=== PATIENT | female | born 1940 | race Caucasian/White ===

== ENCOUNTER 2018-01-27 08:00 | Inpatient (IN) | payer MEDICARE ==
[2018-01-27] MEDS ORDERED: ONDANSETRON HCL INJ/PF 4 MG/2 ML SDV IV ONE ×2 (08:35→12:45)
[2018-01-27] MEDS ORDERED: NORMAL SALINE 1000 ML 1,000 ML IV ONE (08:35)
--- NOTE | 2018-01-27 08:35 | ER Document Report ---
ED General - General Mode of Arrival: Ambulatory Information source: Patient TRAVEL OUTSIDE OF THE [place] IN LAST 30 DAYS: No <ROSEMARIE BENNETT - Last Filed: 01/27/18 09:00> <NAVYA GIRON - Last Filed: 01/27/18 16:42> - General Chief Complaint: Fever Stated Complaint: FEVER Time Seen by Provider: 01/27/18 08:26 Notes: Patient is a 77 year old female with CAD (2 stents), type 2 diabetes, hypertension, hyperlipidemia presents to the emergency department complaining of multiple symptoms including fever, nausea, abdominal pain, vomiting and a frontal headache onset 2 days ago. Patients states she has been feeling unwell for the last 2 days stating she initially thought she had a flare of her arthritis due to having some joint pain but that has since resolved and she has been nauseous and having episodes of diarrhea. She states she has only been dry heaving and further states her episodes of diarrhea have been in small amounts further describing it as "mucousy". She also reports decreased urine output the last 2 days. She denies any coughs. Patient states she recently moved here from [place] to live with her daughter. Patient's PCP is Dr. Rangel. (ROSEMARIE BENNETT) - Related Data Allergies/Adverse Reactions: ciprofloxacin [From Cipro] Adverse Reaction (Verified 01/27/18 08:01) Past Medical History - General Information source: Patient - Social History Smoking Status: Never Smoker Cigarette use (# per day): No Chew tobacco use (# tins/day): No Smoking Education Provided: No Drug Abuse: None Family History: Reviewed & Not Pertinent - Past Medical History Cardiac Medical History: Reports: Hx Coronary Artery Disease - 2 stents, Hx Hypercholesterolemia, Hx Hypertension Endocrine Medical History: Reports: Hx Diabetes Mellitus Type 2 Musculoskeletal Medical History: Reports Hx Arthritis Past Surgical History: Reports: Hx Appendectomy, Hx Hysterectomy, Hx Tubal Ligation <ROSEMARIE BENNETT - Last Filed: 01/27/18 09:00> Review of Systems - Review of Systems Constitutional: See HPI, Fever, Malaise EENT: No symptoms reported Cardiovascular: No symptoms reported Respiratory: No symptoms reported Gastrointestinal: See HPI, Abdominal pain, Diarrhea, Nausea Genitourinary: See HPI Female Genitourinary: No symptoms reported Musculoskeletal: No symptoms reported Skin: No symptoms reported Hematologic/Lymphatic: No symptoms reported Neurological/Psychological: No symptoms reported -: Yes All other systems reviewed and negative <ROSEMARIE BENNETT - Last Filed: 01/27/18 09:00> Physical Exam - General General appearance: Appears well, Alert In distress: None - HEENT Head: Normocephalic, Atraumatic Eyes: Normal Conjunctiva: Normal Extraocular movements intact: Yes Pupils: PERRL Neck: Normal, Other - No rigidity. - Respiratory Respiratory status: No respiratory distress, Other - Cough exacerbated frontal headache. Chest status: Nontender Breath sounds: Normal Chest palpation: Normal - Cardiovascular Rhythm: Regular Heart sounds: Normal auscultation Friction rub: No Gallop: None auscultated - Abdominal Inspection: Normal Distension: No distension Bowel sounds: Normal Tenderness: Tender - Minimally tender to the RLQ. - Back Back: Normal - Extremities General upper extremity: Normal ROM General lower extremity: Normal ROM - Neurological Neuro grossly intact: Yes Cognition: Normal Orientation: AAOx4 [place] Coma Scale Eye Opening: Spontaneous Kyle Coma Scale Verbal: Oriented [place] Coma Scale Motor: Obeys Commands Kyle Coma Scale Total: 15 Speech: Normal - Psychological Associated symptoms: Normal affect, Normal mood - Skin Skin Temperature: Warm Skin Moisture: Dry Skin Color: Normal <ROSEMARIE BENNETT - Last Filed: 01/27/18 09:00> - Vital signs Vitals: Temp Pulse Resp BP Pulse Ox 99.5 F 100 20 130/50 H 99 01/27/18 08:05 01/27/18 08:05 01/27/18 08:05 01/27/18 08:05 01/27/18 08:05 Course <ROSEMARIE BENNETT - Last Filed: 01/27/18 09:00> - Laboratory Result Diagrams: 01/27/18 09:08 01/27/18 09:08 - EKG Interpretation by Ct EKG shows normal: Sinus rhythm, [place], Intervals, QRS Complexes, ST-T Waves Rate: Normal - 99 Rhythm: NSR P Waves: LAE When compared to previous EKG there are: Previous EKG unavailable - Consults Dr. Zepeda Time consulted: 16:40 Consulted provider: will come to ER <NAVYA GIRON - Last Filed: 01/27/18 16:42> - Re-evaluation Re-evalutation: 01/27/18 14:40 The patient was reevaluated about 12:35, she had only urinated a small amount for the urinalysis after the first 2 L of IV fluids. She was beginning to feel quite warm to touch. She stated she was just aching generally all over her body. She had some limitation in attempt to place her chin on her chest due to her arthritis, but flexing her neck did not cause any increase in her headache, and she was able to extend her neck and then flex back almost fully without any real discomfort. I gave her 975 mg Tylenol, 1/2 mg of Dilaudid, and another liter of LR. 01/27/18 16:35 Patient has had at least 2 episodes of diarrhea since the last note above. She states she does feel much better all over since receiving the Tylenol and the small dose of Dilaudid. (NAVYA GIRON) - Vital Signs Vital signs: Temp Pulse Resp BP Pulse Ox 99.5 F 100 20 135/58 H 94 01/27/18 08:05 01/27/18 12:00 01/27/18 12:00 01/27/18 12:00 01/27/18 12:00 - Laboratory Laboratory results interpreted by me: 01/27/18 01/27/18 01/27/18 09:08 09:08 10:05 WBC 20.0 H MCV 79 L MCH 26.4 L RDW 14.7 H Seg Neuts % (Manual) 95 H Lymphocytes % (Manual) 1 L Abs Neuts (Manual) 19.0 H Abs Lymphs (Manual) 0.4 L Sodium 131.2 L Chloride 93 L Carbon Dioxide 21 L Glucose 207 H Urine Protein 100 H Urine Glucose (UA) 50 H Urine Ketones 20 H Ur Leukocyte Esterase MODERATE H Discharge <ROSEMARIE BENNETT - Last Filed: 01/27/18 09:00> - Discharge Admitting Provider: Hospitalist Unit Admitted: Telemetry <NAVYA GIRON - Last Filed: 01/27/18 16:42> - Discharge Clinical Impression: Nausea, vomiting and diarrhea, Generalized pain Leukocytosis Qualifiers: Leukocytosis type: unspecified Qualified Code(s): D72.829 - Elevated white blood cell count, unspecified Fever Qualifiers: Fever type: unspecified Qualified Code(s): R50.9 - Fever, unspecified Condition: Stable Disposition: ADMITTED INPATIENT Referrals: COREY RANGEL MD [Primary Care Provider] - Follow up as needed Scribe Attestation: 01/27/18 09:09 I personally performed the services described in the documentation, reviewed and edited the documentation which was dictated to the scribe in my presence, and it accurately records my words and actions. (NAVYA GIRON) Scribe Documentation - Scribe Written by Willy:: Willy Maradiaga, 01/27/2018 08:45 acting as scribe for :: Phil <ROSEMARIE BENNETT - Last Filed: 01/27/18 09:00>
[2018-01-27] MEDS ORDERED: ONDANSETRON HCL INJ/PF 4 MG/2 ML SDV ONE ×2 (08:47→12:51)
--- NOTE | 2018-01-27 09:31 | RADIOLOGY REPORT (SQ) ---
EXAM DESCRIPTION: CHEST SINGLE VIEW COMPLETED DATE/TIME: 01/27/2018 9:20 am REASON FOR STUDY: Nausea, vomiting, fever, headache COMPARISON: None. EXAM PARAMETERS: NUMBER OF VIEWS: One view. TECHNIQUE: Single frontal radiographic view of the chest acquired. RADIATION DOSE: NA LIMITATIONS: None. FINDINGS: LUNGS AND PLEURA: No opacities, masses or pneumothorax. No pleural effusion. MEDIASTINUM AND HILAR STRUCTURES: No masses. Contour normal. HEART AND VASCULAR STRUCTURES: Heart normal in size. Normal vasculature. BONES: No acute findings. HARDWARE: None in the chest. OTHER: No other significant finding. IMPRESSION: NO ACUTE RADIOGRAPHIC FINDING IN THE CHEST. TECHNICAL DOCUMENTATION: JOB ID: [id number] [employer]- All Rights Reserved Reading location - IP/workstation name: [email or web address]
[2018-01-27 09:35] LABS: HEMATOCRIT 36.2 % (36.0-47.0); HEMOGLOBIN 12.2 g/dL (12.0-15.5); MEAN CORPUSCULAR HEMOGLOBIN 26.4 pg (27.0-33.4); MEAN CORPUSCULAR HGB CONC 33.6 g/dL (32.0-36.0); MEAN CORPUSCULAR VOLUME 79 fl (80-97); PLATELET COUNT 248 10^3/uL (150-450); RED BLOOD COUNT 4.61 10^6/uL (3.72-5.28); RED CELL DISTRIBUTION WIDTH 14.7 % (11.5-14.0)
[2018-01-27 09:49] LABS: ALANINE AMINOTRANSFERASE 32 U/L (9-52); ALBUMIN 3.9 g/dL (3.5-5.0); ALKALINE PHOSPHATASE 113 U/L (38-126); ANION GAP 17 (5-19); ASPARTATE AMINO TRANSFERASE 19 U/L (14-36); BILIRUBIN,DIRECT 0.3 mg/dL (0.0-0.4); BILIRUBIN,TOTAL 0.8 mg/dL (0.2-1.3); BLOOD UREA NITROGEN 12 mg/dL (7-20); CALCIUM 9.1 mg/dL (8.4-10.2); CARBON DIOXIDE 21 mmol/L (22-30); CHLORIDE 93 mmol/L (98-107); CREATINE KINASE 52 U/L (30-135); GLUCOSE 207 mg/dL (75-110); POTASSIUM 4.1 mmol/L (3.6-5.0); SODIUM 131.2 mmol/L (137-145); TOTAL PROTEIN 6.9 g/dL (6.3-8.2)
[2018-01-27 10:01] LABS: CREATINE KINASE MB 1.03 ng/mL (<4.55)
[2018-01-27 10:03] LABS: TROPONIN I < 0.012 ng/mL
[2018-01-27] MEDS ORDERED: RINGERS SOLUTION,LACTATED 1,000 ML IV ONE ×3 (10:19→16:37)
[2018-01-27 10:22] LABS: ABSOLUTE LYMPHOCYTES# (MANUAL) 0.4 10^3/uL (0.5-4.7); ABSOLUTE MONOCYTES # (MANUAL) 0.6 10^3/uL (0.1-1.4); BASOPHILS % (MANUAL) 0 % (0-2); EOSINOPHILS % (MANUAL) 0 % (0-6); LYMPHOCYTES % (MANUAL) 1 % (13-45); MONOCYTES % (MANUAL) 3 % (3-13); SEGMENTED NEUTROPHILS % (MAN) 95 % (42-78); TOTAL CELLS COUNTED 100
[2018-01-27 10:23] LABS: ANISOCYTOSIS SLIGHT; HYPOCHROMASIA SLIGHT; PLATELET COMMENT ADEQUATE; POIKILOCYTOSIS SLIGHT; TEAR DROP CELLS SLIGHT
[2018-01-27 10:40] LABS: AMORPHOUS SEDIMENT,URINE TRACE /HPF; APPEARANCE,URINE SLIGHTLY-CLOUDY; BILIRUBIN,URINE NEGATIVE (NEGATIVE); GLUCOSE, URINE 50 mg/dL (NEGATIVE); KETONES,URINE 20 mg/dL (NEGATIVE); LEUKOCYTE ESTERASE,URINE MODERATE (NEGATIVE); NITRITE,URINE NEGATIVE (NEGATIVE); PROTEIN,URINE 100 mg/dL (NEGATIVE); URINE SPECIFIC GRAVITY 1.024; UROBILINOGEN,URINE NEGATIVE mg/dL (<2.0)
[2018-01-27 10:42] LABS: COLOR,URINE YELLOW
[2018-01-27] MEDS ORDERED: HYDROMORPHONE HCL INJ/PF 2 MG/ML AMPULE IV ONE (12:45)
[2018-01-27] MEDS ORDERED: ACETAMINOPHEN 325 MG TABLET PO ONE (12:46)
[2018-01-27] MEDS ORDERED: HYDROMORPHONE HCL INJ/PF 2 MG/ML AMPULE ONE (12:50)
[2018-01-27] MEDS ORDERED: ACETAMINOPHEN 325 MG TABLET ONE (12:50)
[2018-01-27] MEDS ORDERED: PROMETHAZINE HCL INJ 25 MG/1 ML VIAL IV PRN (18:18)
[2018-01-27] MEDS ORDERED: IPRATROPIUM/ALBUTEROL 0.5-2.5 MG/3 ML AMPUL NEB PRN (18:18)
[2018-01-27] MEDS ORDERED: OXYCODONE-ACETAMINOPHEN 5-325 MG TABLET PO PRN (18:18)
[2018-01-27] MEDS ORDERED: DICYCLOMINE HCL 20 MG TABLET PO PRN (18:24)
--- NOTE | 2018-01-27 18:41 | PDOC H&P ---
History of Present Illness Admission Date/PCP: 01/27/18 17:41 COREY ALVAREZ MD Patient complains of: Abdominal pain, cramping, nausea and vomiting for about 2 days History of Present Illness: ADRIAN KARIMI is a 77 year old female Presents to the emergency room with the above complaints. She is not sure if she really ate anything to make her sick but states that the symptoms started Wednesday night after she ate some sandwich. She has been having loose stools as well as abdominal cramping and nausea and vomiting. She is also had a poor appetite as well as fever. There is no chest pain diaphoresis. She decided to come to the emergency room today for further evaluation due to the persistent symptoms. She was found to be septic with a white count of 20,000 as well as with the possible UTI in addition to the diarrhea and cramping. Patient states she had a somewhat similar episode back in October and she was told she had a colitis. She is actually scheduled for a colonoscopy in February 03. Past Medical History Cardiac Medical History: Reports: Coronary Artery Disease - 2 stents, Hyperlipidema, Hypertension Endocrine Medical History: Reports: Diabetes Mellitus Type 2 Musculoskeltal Medical History: Reports: Arthritis Past Surgical History Past Surgical History: Reports: Appendectomy, Hysterectomy, Tubal Ligation Social History Information Source: Patient Smoking Status: Never Smoker - Advance Directive Resuscitation Status: Full Code Family History Family History: Reviewed & Not Pertinent Parental Family History Reviewed: No Children Family History Reviewed: Yes Sibling(s) Family History Reviewed.: Yes Medication/Allergy Home Medications: Amlodipine Besylate [Norvasc 10 mg Tablet] 10 mg PO DAILY 01/27/18 Aspirin [Aspirin EC] 81 mg PO DAILY 01/27/18 Carvedilol [Coreg 6.25 mg Tablet] 6.25 mg PO Q12 01/27/18 Glipizide [Glipizide Xl] 10 mg PO Q12 01/27/18 Insulin Degludec [Tresiba Flextouch U-200] 16 - 20 unit SQ HSP PRN 01/27/18 Lisinopril [Zestril] 30 mg PO QHS 01/27/18 Metformin HCl [Metformin HCl ER] 500 mg PO Q12 01/27/18 Simvastatin [Zocor 10 mg Tablet] 10 mg PO QHS 01/27/18 Allergies/Adverse Reactions: ciprofloxacin [From Cipro] Adverse Reaction (Verified 01/27/18 08:01) Review of Systems All systems: reviewed and no additional remarkable complaints except as stated Physical Exam Vital Signs: Temp Pulse Resp BP Pulse Ox 99.5 F 100 20 135/58 H 94 01/27/18 08:05 01/27/18 12:00 01/27/18 12:00 01/27/18 12:00 01/27/18 12:00 General appearance: PRESENT: no acute distress, well-developed, well-nourished Head exam: PRESENT: atraumatic, normocephalic Eye exam: PRESENT: conjunctiva pink, EOMI, PERRLA. ABSENT: scleral icterus Ear exam: PRESENT: normal external ear exam Mouth exam: PRESENT: moist, tongue midline Neck exam: ABSENT: carotid bruit, JVD, lymphadenopathy, thyromegaly Respiratory exam: PRESENT: clear to auscultation varun. ABSENT: rales, rhonchi, wheezes Cardiovascular exam: PRESENT: RRR. ABSENT: diastolic murmur, rubs, systolic murmur Pulses: PRESENT: normal dorsalis pedis pul Vascular exam: PRESENT: normal capillary refill GI/Abdominal exam: PRESENT: distended, hyperactive bowel sounds, normal bowel sounds, soft. ABSENT: guarding, mass, organolmegaly, rebound, tenderness Rectal exam: PRESENT: deferred Extremities exam: PRESENT: full ROM. ABSENT: calf tenderness, clubbing, pedal edema Neurological exam: PRESENT: alert, awake, oriented to person, oriented to place , oriented to time, oriented to situation, CN II-XII grossly intact. ABSENT: motor sensory deficit Psychiatric exam: PRESENT: appropriate affect, normal mood. ABSENT: homicidal ideation, suicidal ideation Skin exam: PRESENT: dry, intact, warm. ABSENT: cyanosis, rash Results Laboratory Results: 01/27/18 09:08 01/27/18 09:08 MCV 79 fl (80-97) L 01/27/18 09:08 MCH 26.4 pg (27.0-33.4) L 01/27/18 09:08 MCHC 33.6 g/dL (32.0-36.0) 01/27/18 09:08 RDW 14.7 % (11.5-14.0) H 01/27/18 09:08 Seg Neutrophils % Not Reportable 01/27/18 09:08 Lymphocytes % Not Reportable 01/27/18 09:08 Monocytes % Not Reportable 01/27/18 09:08 Eosinophils % Not Reportable 01/27/18 09:08 Basophils % Not Reportable 01/27/18 09:08 Absolute Neutrophils Not Reportable 01/27/18 09:08 Absolute Lymphocytes Not Reportable 01/27/18 09:08 Absolute Monocytes Not Reportable 01/27/18 09:08 Absolute Eosinophils Not Reportable 01/27/18 09:08 Absolute Basophils Not Reportable 01/27/18 09:08 Chloride 93 mmol/L (98-107) L 01/27/18 09:08 Carbon Dioxide 21 mmol/L (22-30) L 01/27/18 09:08 Anion Gap 17 (5-19) 01/27/18 09:08 Est GFR ( Amer) > 60 (>60) 01/27/18 09:08 Est GFR (Non-Af Amer) > 60 (>60) 01/27/18 09:08 Glucose 207 mg/dL (75-110) H 01/27/18 09:08 Lactic Acid 1.2 mmol/L (0.7-2.1) 01/27/18 09:08 Calcium 9.1 mg/dL (8.4-10.2) 01/27/18 09:08 Total Bilirubin 0.8 mg/dL (0.2-1.3) 01/27/18 09:08 AST 19 U/L (14-36) 01/27/18 09:08 ALT 32 U/L (9-52) 01/27/18 09:08 Alkaline Phosphatase 113 U/L (38-126) 01/27/18 09:08 Total Protein 6.9 g/dL (6.3-8.2) 01/27/18 09:08 Albumin 3.9 g/dL (3.5-5.0) 01/27/18 09:08 Urine Color YELLOW 01/27/18 10:05 Urine Appearance SLIGHTLY-CLOUDY 01/27/18 10:05 Urine pH 5.0 (5.0-9.0) 01/27/18 10:05 Ur Specific [place] 1.024 01/27/18 10:05 Urine Protein 100 mg/dL (NEGATIVE) H 01/27/18 10:05 Urine Glucose (UA) 50 mg/dL (NEGATIVE) H 01/27/18 10:05 Urine Ketones 20 mg/dL (NEGATIVE) H 01/27/18 10:05 Urine Blood NEGATIVE (NEGATIVE) 01/27/18 10:05 Urine Nitrite NEGATIVE (NEGATIVE) 01/27/18 10:05 Ur Leukocyte Esterase MODERATE (NEGATIVE) H 01/27/18 10:05 Urine WBC (Auto) 9 /HPF 01/27/18 10:05 Urine RBC (Auto) 5 /HPF 01/27/18 10:05 Stool for White Cells Cancelled 01/27/18 15:40 01/27/18 01/27/18 09:08 09:08 Creatine Kinase 52 CK-MB (CK-2) 1.03 Troponin I < 0.012 Impressions: Chest X-Ray 01/27/18 08:36 IMPRESSION: NO ACUTE RADIOGRAPHIC FINDING IN THE CHEST. Assessment & Plan - Diagnosis (1) UTI (urinary tract infection) Is this a current diagnosis for this admission?: Yes Plan: I feel this is likely secondary to the acute gastrointestinal illness that she has. Will obtain urine culture. She will be started on Invanz as she is allergic to ciprofloxacin as this will cover both GI organisms as well as genitourinary admissions. We will de-escalate as appropriate (2) Nausea, vomiting and diarrhea Is this a current diagnosis for this admission?: Yes Plan: #2 gastroenteritis (3) Acute gastroenteritis Is this a current diagnosis for this admission?: Yes Plan: We will treat symptomatically and also with empiric antibiotics. Will consider obtaining a CT scan depending on patient's hospital course. She definitely will need colonoscopy in the near future - Time Time Spent: 50 to 70 Minutes Medications reviewed and adjusted accordingly: Yes Anticipated discharge: Home Within: within 72 hours - Inpatient Certification Based on my medical assessment, after consideration of the patient's comorbidities, presenting symptoms, or acuity I expect that the services needed warrant INPATIENT care.: Yes Medical Necessity: Need For IV Fluids, Need for IV Antibiotics, Risk of Diagnosis Which Will Require Inpatient Eval/Care/Monitoring
[2018-01-27] MEDS ORDERED: ENOXAPARIN SODIUM INJ 40 MG/0.4 ML DISP.SYRIN SUBCUT ONE (19:00)
[2018-01-27] MEDS: RINGERS SOLUTION,LACTATED 1,000 ML IV PRN (19:20)
[2018-01-27] MEDS ORDERED: TEMAZEPAM 7.5 MG CAPSULE PO PRN (22:00)
[2018-01-28] MEDS: ERTAPENEM SODIUM 1 GM in NORMAL SALINE 50 ML IV SCH ×2 (00:50→21:17)
[2018-01-28] MEDS: FAMOTIDINE INJ/PF 20 MG/2 ML SDV IV SCH ×3 (00:51→21:18)
[2018-01-28 08:00] LABS: ANION GAP 11 (5-19); BLOOD UREA NITROGEN 6 mg/dL (7-20); CALCIUM 8.6 mg/dL (8.4-10.2); CARBON DIOXIDE 24 mmol/L (22-30); CHLORIDE 101 mmol/L (98-107); GLUCOSE 118 mg/dL (75-110); POTASSIUM 3.5 mmol/L (3.6-5.0); SODIUM 135.7 mmol/L (137-145)
[2018-01-28 08:08] LABS: ABSOLUTE LYMPHOCYTES (AUTO) 0.9 10^3/uL (0.5-4.7); ABSOLUTE MONOCYTES (AUTO) 0.6 10^3/uL (0.1-1.4); ABSOLUTE NEUT (AUTO) 7.9 10^3/uL (1.7-8.2); BASOPHILS % (AUTO) 0.1 % (0-2); EOSINOPHILS % (AUTO) 0.1 % (0-6); HEMATOCRIT 31.8 % (36.0-47.0); HEMOGLOBIN 11.1 g/dL (12.0-15.5); LYMPHOCYTES % (AUTO) 9.2 % (13-45); MEAN CORPUSCULAR HEMOGLOBIN 26.9 pg (27.0-33.4); MEAN CORPUSCULAR HGB CONC 34.7 g/dL (32.0-36.0); MEAN CORPUSCULAR VOLUME 78 fl (80-97); MONOCYTES % (AUTO) 6.2 % (3-13); PLATELET COUNT 211 10^3/uL (150-450); SEGMENTED NEUTROPHILS % (AUTO) 84.4 % (42-78); TOTAL CELLS COUNTED % (AUTO) 100 %; WHITE BLOOD COUNT 9.3 10^3/uL (4.0-10.5)
--- NOTE | 2018-01-28 09:08 | EKG REPORT ---
SEVERITY:- ABNORMAL ECG - SINUS RHYTHM PROBABLE LEFT ATRIAL ABNORMALITY CONSIDER ANTEROSEPTAL INFARCT : Confirmed by: Belia Castellon 28-Jan-2018 09:07:30
[2018-01-28] MEDS: ENOXAPARIN SODIUM INJ 40 MG/0.4 ML DISP.SYRIN SUBCUT SCH (11:10)
[2018-01-28] MEDS: RINGERS SOLUTION,LACTATED 1,000 ML IV PRN ×2 (11:11→21:26)
[2018-01-28] MEDS: ACETAMINOPHEN 325 MG TABLET PO PRN ×2 (11:17→22:47)
--- NOTE | 2018-01-28 17:51 | PDOC PROGRESS REPORT ---
Subjective Progress Note for:: 01/28/18 Subjective:: Patient admitted with abdominal pain nausea and vomiting and presumed to have a possible infectious gastroenteritis or colitis. Patient appears to be doing better today however she still pretty tender in the lower quadrant. Her white count has come down from 20,000-8000. Diarrhea has more or less resolved. Stool WBC is positive Although culture is still pending C. difficile is also negative. Patient remains on a liquid diet due to abdominal pain Reason For Visit: ACUTE GASTROENTERITIS, SEPSIS, UTI Physical Exam Vital Signs: Temp Pulse Resp BP Pulse Ox 98.7 F 75 17 141/54 H 98 01/28/18 16:00 01/28/18 16:00 01/28/18 16:00 01/28/18 16:00 01/28/18 16:00 Intake & Output 01/27/18 01/28/18 01/29/18 06:59 06:59 06:59 Intake Total 2250 Output Total 680 Balance 1570 Weight 72.9 kg General appearance: PRESENT: no acute distress, well-developed, well-nourished Head exam: PRESENT: atraumatic, normocephalic Eye exam: PRESENT: conjunctiva pink, EOMI, PERRLA. ABSENT: scleral icterus Ear exam: PRESENT: normal external ear exam Mouth exam: PRESENT: moist, tongue midline Neck exam: ABSENT: carotid bruit, JVD, lymphadenopathy, thyromegaly Respiratory exam: PRESENT: clear to auscultation varun. ABSENT: rales, rhonchi, wheezes Cardiovascular exam: PRESENT: RRR. ABSENT: diastolic murmur, rubs, systolic murmur Pulses: PRESENT: normal dorsalis pedis pul Vascular exam: PRESENT: normal capillary refill GI/Abdominal exam: PRESENT: normal bowel sounds, soft, tenderness - Left and right lower quadrants with no guarding. ABSENT: distended, guarding, mass, organolmegaly, rebound Rectal exam: PRESENT: deferred Extremities exam: PRESENT: full ROM. ABSENT: calf tenderness, clubbing, pedal edema Neurological exam: PRESENT: alert, awake, oriented to person, oriented to place , oriented to time, oriented to situation, CN II-XII grossly intact. ABSENT: motor sensory deficit Psychiatric exam: PRESENT: appropriate affect, normal mood. ABSENT: homicidal ideation, suicidal ideation Skin exam: PRESENT: dry, intact, warm. ABSENT: cyanosis, rash Results Laboratory Results: 01/28/18 07:04 01/28/18 07:04 01/27/18 01/28/18 01/28/18 18:50 07:04 07:04 WBC 9.3 RBC 4.10 Hgb 11.1 L Hct 31.8 L MCV 78 L MCH 26.9 L MCHC 34.7 RDW 15.0 H Plt Count 211 Seg Neutrophils % 84.4 H Lymphocytes % 9.2 L Monocytes % 6.2 Eosinophils % 0.1 Basophils % 0.1 Absolute Neutrophils 7.9 Absolute Lymphocytes 0.9 Absolute Monocytes 0.6 Absolute Eosinophils 0.0 Absolute Basophils 0.0 Sodium 135.7 L Potassium 3.5 L Chloride 101 Carbon Dioxide 24 Anion Gap 11 BUN 6 L Creatinine 0.46 L Est GFR ( Amer) > 60 Est GFR (Non-Af Amer) > 60 Glucose 118 H Calcium 8.6 Stool for White Cells MANY H Impressions: Chest X-Ray 01/27/18 08:36 IMPRESSION: NO ACUTE RADIOGRAPHIC FINDING IN THE CHEST. Assessment & Plan - Diagnosis (1) Acute gastroenteritis Is this a current diagnosis for this admission?: Yes Plan: I am afraid patient may have some colitis and I will suggest obtaining a CT of the abdomen pelvis in a.m. if she is still symptomatic. She is scheduled to have a colonoscopy at the end of the month but with this acute episode is unclear if that will be done (2) UTI (urinary tract infection) Qualifiers: Urinary tract infection type: acute cystitis Is this a current diagnosis for this admission?: Yes Plan: She is on empiric Ertrapenem. Follow-up on cultures if any (3) Nausea, vomiting and diarrhea Is this a current diagnosis for this admission?: Yes - Time Time Spent with patient: 15-24 minutes Medications reviewed and adjusted accordingly: Yes Anticipated discharge: Home Within: within 48 hours - Inpatient Certification Based on my medical assessment, after consideration of the patient's comorbidities, presenting symptoms, or acuity I expect that the services needed warrant INPATIENT care.: Yes Medical Necessity: Need For IV Fluids, Need for IV Antibiotics
[2018-01-28] MEDS: SIMVASTATIN 10 MG TABLET PO SCH (21:17)
[2018-01-28] MEDS: CARVEDILOL 6.25 MG TABLET PO SCH (21:17)
[2018-01-29 05:46] LABS: ABSOLUTE EOSINOPHILS # (AUTO) 0.1 10^3/uL (0.0-0.6); ABSOLUTE LYMPHOCYTES (AUTO) 1.2 10^3/uL (0.5-4.7); ABSOLUTE MONOCYTES (AUTO) 0.7 10^3/uL (0.1-1.4); BASOPHILS % (AUTO) 0.3 % (0-2); EOSINOPHILS % (AUTO) 1.7 % (0-6); HEMATOCRIT 31.5 % (36.0-47.0); LYMPHOCYTES % (AUTO) 19.7 % (13-45); MEAN CORPUSCULAR HEMOGLOBIN 26.9 pg (27.0-33.4); MEAN CORPUSCULAR HGB CONC 34.9 g/dL (32.0-36.0); MEAN CORPUSCULAR VOLUME 77 fl (80-97); PLATELET COUNT 209 10^3/uL (150-450); RED BLOOD COUNT 4.08 10^6/uL (3.72-5.28); RED CELL DISTRIBUTION WIDTH 14.7 % (11.5-14.0); SEGMENTED NEUTROPHILS % (AUTO) 67.3 % (42-78); TOTAL CELLS COUNTED % (AUTO) 100 %
[2018-01-29 06:15] LABS: ANION GAP 12 (5-19); BLOOD UREA NITROGEN 4 mg/dL (7-20); CALCIUM 8.6 mg/dL (8.4-10.2); CARBON DIOXIDE 28 mmol/L (22-30); CHLORIDE 97 mmol/L (98-107); GLUCOSE 190 mg/dL (75-110); POTASSIUM 3.4 mmol/L (3.6-5.0); SODIUM 137.2 mmol/L (137-145)
[2018-01-29] MEDS ORDERED: DEXTROSE 50%-WATER SYRINGE 25 GM/50 ML DOSE IV PRN (07:17)
[2018-01-29] MEDS ORDERED: GLUCAGON,HUMAN RECOMB 1 MG INJ IM PRN (07:17)
[2018-01-29] MEDS ORDERED: DEXTROSE 50%-WATER SYRINGE 12.5 GM/25 ML DOSE IV PRN (07:17)
[2018-01-29] MEDS ORDERED: DEXTROSE 40% GEL 15 GM TUBE X 2 PO PRN (07:17)
[2018-01-29] MEDS ORDERED: DEXTROSE 40% GEL 15 GM TUBE PO PRN (07:17)
[2018-01-29] MEDS: FAMOTIDINE INJ/PF 20 MG/2 ML SDV IV SCH ×2 (09:36→21:56)
[2018-01-29] MEDS: CARVEDILOL 6.25 MG TABLET PO SCH ×2 (09:37→21:56)
[2018-01-29] MEDS: ENOXAPARIN SODIUM INJ 40 MG/0.4 ML DISP.SYRIN SUBCUT SCH (09:44)
[2018-01-29] MEDS ORDERED: ASPIRIN 81 MG TABLET, ENT COATED PO SCH (10:00)
[2018-01-29] MEDS ORDERED: POTASSIUM CHLORIDE 10 MEQ CAPSULE.ER PO ONE (10:30)
--- NOTE | 2018-01-29 11:11 | PROGRESS NOTE E ---
Progress Note NAME: ADRIAN KARIMI : 1940 AGE: 77Y DATE: 01/29/2018 ROOM: 536 SUBJECTIVE: The patient is lying in bed. She states that she feels much better today. The patient has tolerated her full liquids. She denies any nausea or vomiting. She had two episodes of diarrhea overnight, but states that the volume is much less than what it has been. The patient has been afebrile. Blood pressure has been in good range. No reported episodes of dizziness or belly pain. The patient does not voice any other concerns at this time. REVIEW OF SYSTEMS: The rest of review of systems are negative. MEDICATIONS: Have been reviewed. OBJECTIVE: GENERAL: The patient is a 77-year-old female who is awake, alert, she is oriented to person, place, time, and situation. She is verbal, conversation. Does not appear to be in acute distress. VITAL SIGNS: Temperature 97.9, pulse 79, respirations 17, blood pressure 146/60, oxygen saturation is 99% on room air. SKIN: Warm and dry. No rash. She is not diaphoretic. HEENT: Pupils equal, round, and reactive to light and accommodation. Conjunctivae is pink. There is no evidence of JVP. CARDIOVASCULAR: Heart is regular. There is no murmur or rub. CHEST: Clear, symmetrical, unlabored. ABDOMEN: Soft, nontender, nondistended. BACK: No CVA tenderness or sacral edema. EXTREMITIES: No clubbing, cyanosis, or edema. PSYCHIATRIC: Appropriate affect, pleasant mood. DIAGNOSTICS: Lab values are as follows. Hematology obtained on 01/29/2018: WBC 6, hemoglobin 5, hematocrit 31.5, platelet count 309,000. Chemistry obtained on 01/29/2018: Sodium 137, potassium 3.4, chloride 97, carbon dioxide 28, BUN 4, creatinine 0.44, glucose 190, calcium 8.6. IMPRESSION AND PLAN: 1. ACUTE GASTROENTERITIS, suspect viral etiology. We will continue to monitor. We will discontinue IV fluids today to see how the patient tolerates this. The patient does have a colonoscopy scheduled at the end of the month. Stool culture is pending. We will continue ertapenem in the interim. 2. URINARY TRACT INFECTION. Again, the patient has been covered with ertapenem. Urine may be dirty just from the diarrhea itself. 3. NAUSEA WITH VOMITING. This component has resolved. 4. SEPSIS SECONDARY TO NUMBER ONE. The patient's white count has come down nicely. Her source is GI etiology. No longer febrile. 5. CORONARY ARTERY DISEASE. We will continue the patient's home medications. 6. HYPERTENSION. Blood pressure has been in acceptable range. We will hold off on the patient's blood pressure medications at this time and to make sure we have a good blood pressure to work with. DISPOSITION: The patient is a full code. Depending on the patient's symptomatology and diagnostic findings, we will reevaluate in the a.m. for discharge. Time spent on this follow up including assessment, plan, physical examination, patient education, record of records is 25 minutes. DICTATING PHYSICIAN: BISHNU MCCALL NP [id number] PHY#: [id number] ID: [id number] JOB#: [id number] ACCT: [id number] cc: >
[2018-01-29] MEDS ORDERED: AZITHROMYCIN 250 MG TABLET PO SCH (12:15)
[2018-01-29] MEDS: LACTOBACILLUS ACIDOPHILUS 250 MG TAB PO SCH ×2 (12:51→18:02)
[2018-01-29] MEDS: INSULIN LISPRO 100 UNIT/ML 3 ML VIAL SUBCUT PRN ×3 (12:52→21:56)
[2018-01-29] MEDS: SIMVASTATIN 10 MG TABLET PO SCH (21:56)
[2018-01-29] MEDS: ACETAMINOPHEN 325 MG TABLET PO PRN (21:58)
[2018-01-30 05:07] LABS: ABSOLUTE EOSINOPHILS # (AUTO) 0.2 10^3/uL (0.0-0.6); ABSOLUTE LYMPHOCYTES (AUTO) 1.4 10^3/uL (0.5-4.7); ABSOLUTE MONOCYTES (AUTO) 0.6 10^3/uL (0.1-1.4); ABSOLUTE NEUT (AUTO) 2.9 10^3/uL (1.7-8.2); BASOPHILS % (AUTO) 0.5 % (0-2); EOSINOPHILS % (AUTO) 4.2 % (0-6); HEMATOCRIT 32.7 % (36.0-47.0); HEMOGLOBIN 11.2 g/dL (12.0-15.5); LYMPHOCYTES % (AUTO) 27.4 % (13-45); MEAN CORPUSCULAR HEMOGLOBIN 26.5 pg (27.0-33.4); MEAN CORPUSCULAR HGB CONC 34.2 g/dL (32.0-36.0); MEAN CORPUSCULAR VOLUME 78 fl (80-97); MONOCYTES % (AUTO) 12.3 % (3-13); PLATELET COUNT 227 10^3/uL (150-450); RED BLOOD COUNT 4.22 10^6/uL (3.72-5.28); RED CELL DISTRIBUTION WIDTH 14.3 % (11.5-14.0); SEGMENTED NEUTROPHILS % (AUTO) 55.6 % (42-78); TOTAL CELLS COUNTED % (AUTO) 100 %; WHITE BLOOD COUNT 5.3 10^3/uL (4.0-10.5)
[2018-01-30 05:49] LABS: ANION GAP 10 (5-19); BLOOD UREA NITROGEN 8 mg/dL (7-20); CARBON DIOXIDE 30 mmol/L (22-30); CHLORIDE 98 mmol/L (98-107); GLUCOSE 224 mg/dL (75-110); SODIUM 137.9 mmol/L (137-145)
[2018-01-30 06:06] LABS: CALCIUM 8.7 mg/dL (8.4-10.2)
[2018-01-30 09:33] VITALS: BP 141/54
[2018-01-30] MEDS ORDERED: AZITHROMYCIN 250 MG TABLET PO ONE (10:30)
--- NOTE | 2018-01-30 16:29 | PDOC DISCHARGE SUMMARY ---
General - Admit/Disc Date/PCP Admission Date/Primary Care Provider: 01/27/18 17:41 COREY ALVAREZ MD Discharge Date: 01/30/18 - Discharge Diagnosis (1) Campylobacter enteritis Is this a current diagnosis for this admission?: Yes (2) Sepsis Is this a current diagnosis for this admission?: Yes Summary: Secondary to #1. Present on admission. Resolved. (3) Diabetes mellitus type 2 in nonobese Is this a current diagnosis for this admission?: Yes (4) CAD (coronary artery disease) Is this a current diagnosis for this admission?: Yes - Additional Information Resuscitation Status: Full Code Discharge Diet: As Tolerated, Regular Discharge Activity: Activity As Tolerated Prescriptions: Azithromycin [Zithromax Tri-Jt] 500 mg PO ASDIR PRN #1 tablet PRN Reason: Bifidobacterium Infantis [Align 4 mg Capsule] 1 cap PO BID #28 cap Home Medications: Amlodipine Besylate [Norvasc 10 mg Tablet] 10 mg PO DAILY 01/27/18 Aspirin [Aspirin EC] 81 mg PO DAILY 01/27/18 Carvedilol [Coreg 6.25 mg Tablet] 6.25 mg PO Q12 01/27/18 Glipizide [Glipizide Xl] 10 mg PO Q12 01/27/18 Insulin Degludec [Tresiba Flextouch U-200] 16 - 20 unit SQ HSP PRN 01/27/18 Lisinopril [Zestril] 30 mg PO QHS 01/27/18 Metformin HCl [Metformin HCl ER] 500 mg PO Q12 01/27/18 Simvastatin [Zocor 10 mg Tablet] 10 mg PO QHS 01/27/18 Azithromycin [Zithromax Tri-Jt] 500 mg PO ASDIR PRN #1 tablet 01/30/18 Bifidobacterium Infantis [Align 4 mg Capsule] 1 cap PO BID #28 cap 01/30/18 History of Present Illness Patient complains of: Nausea vomiting and diarrhea History of Present Illness: ADRIAN KARIMI is a 77 year old female past medical history of diabetes mellitus type 2 and coronary artery disease. The patient presented to the emergency room with the above complaints. She is not sure if she really ate anything to make her sick but states that the symptoms started Wednesday night after she ate some sandwich. She has been having loose stools as well as abdominal cramping and nausea and vomiting. She is also had a poor appetite as well as fever. There is no chest pain diaphoresis. She decided to come to the emergency room today for further evaluation due to the persistent symptoms. She was found to have a white count of 20,000 as well as with the possible UTI in addition to the diarrhea and cramping. Patient states she had a somewhat similar episode back in October and she was told she had a colitis. She is actually scheduled for a colonoscopy in February 03. Patient required to be treated with 3 L of fluid and did fit sepsis criteria. Hospital Course Hospital Course: The patient was admitted to continuous telemetry unit. Stool studies were obtained. The patient had an excellent response overnight to ertapenem. IV fluids were discontinued and the patient was able to maintain her own hydration. The patient's diet was advanced to a regular diet for which she tolerated without issue. Patient was additionally started on probiotic coverage. Patient received a total of 3 days of ertapenem. Given the patient' s allergy to Cipro to treat Campylobacter jejuni with azithromycin course. The patient had complete resolution of symptoms and was provided education regarding transmission. The patient is agreeable to discharge. Physical Exam Vital Signs: Temp Pulse Resp BP Pulse Ox 97.9 F 73 17 141/54 H 100 01/30/18 09:31 01/30/18 09:31 01/30/18 09:31 01/30/18 09:31 01/30/18 09:31 Intake & Output 01/28/18 01/29/18 01/30/18 23:59 23:59 23:59 Intake Total 2989 1857 754 Output Total 2880 1900 500 Balance 109 -43 254 Weight 72.9 kg 72.9 kg 70.8 kg General appearance: PRESENT: no acute distress, well-developed, well-nourished Head exam: PRESENT: atraumatic, normocephalic Eye exam: PRESENT: conjunctiva pink, EOMI, PERRLA. ABSENT: scleral icterus Ear exam: PRESENT: normal external ear exam Mouth exam: PRESENT: moist, tongue midline Neck exam: ABSENT: carotid bruit, JVD, lymphadenopathy, thyromegaly Respiratory exam: PRESENT: clear to auscultation varun. ABSENT: rales, rhonchi, wheezes Cardiovascular exam: PRESENT: RRR. ABSENT: diastolic murmur, rubs, systolic murmur Pulses: PRESENT: normal dorsalis pedis pul Vascular exam: PRESENT: normal capillary refill GI/Abdominal exam: PRESENT: normal bowel sounds, soft. ABSENT: distended, guarding, mass, organolmegaly, rebound, tenderness Rectal exam: PRESENT: deferred Extremities exam: PRESENT: full ROM. ABSENT: calf tenderness, clubbing, pedal edema Neurological exam: PRESENT: alert, awake, oriented to person, oriented to place , oriented to time, oriented to situation, CN II-XII grossly intact. ABSENT: motor sensory deficit Psychiatric exam: PRESENT: appropriate affect, normal mood. ABSENT: homicidal ideation, suicidal ideation Skin exam: PRESENT: dry, intact, warm. ABSENT: cyanosis, rash Results Laboratory Results: Labs- Last Values WBC 5.3 10^3/uL (4.0-10.5) 01/30/18 04:05 RBC 4.22 10^6/uL (3.72-5.28) 01/30/18 04:05 Hgb 11.2 g/dL (12.0-15.5) L 01/30/18 04:05 Hct 32.7 % (36.0-47.0) L 01/30/18 04:05 MCV 78 fl (80-97) L 01/30/18 04:05 MCH 26.5 pg (27.0-33.4) L 01/30/18 04:05 MCHC 34.2 g/dL (32.0-36.0) 01/30/18 04:05 RDW 14.3 % (11.5-14.0) H 01/30/18 04:05 Plt Count 227 10^3/uL (150-450) 01/30/18 04:05 Total Counted 100 01/27/18 09:08 Seg Neutrophils % 55.6 % (42-78) 01/30/18 04:05 Seg Neuts % (Manual) 95 % (42-78) H 01/27/18 09:08 Lymphocytes % 27.4 % (13-45) 01/30/18 04:05 Lymphocytes % (Manual) 1 % (13-45) L 01/27/18 09:08 Atypical Lymphs % 1 % (0) 01/27/18 09:08 Monocytes % 12.3 % (3-13) 01/30/18 04:05 Monocytes % (Manual) 3 % (3-13) 01/27/18 09:08 Eosinophils % 4.2 % (0-6) 01/30/18 04:05 Eosinophils % (Manual) 0 % (0-6) 01/27/18 09:08 Basophils % 0.5 % (0-2) 01/30/18 04:05 Basophils % (Manual) 0 % (0-2) 01/27/18 09:08 Absolute Neutrophils 2.9 10^3/uL (1.7-8.2) 01/30/18 04:05 Abs Neuts (Manual) 19.0 10^3/uL (1.7-8.2) H 01/27/18 09:08 Absolute Lymphocytes 1.4 10^3/uL (0.5-4.7) 01/30/18 04:05 Abs Lymphs (Manual) 0.4 10^3/uL (0.5-4.7) L 01/27/18 09:08 Absolute Monocytes 0.6 10^3/uL (0.1-1.4) 01/30/18 04:05 Abs Monocytes (Manual) 0.6 10^3/uL (0.1-1.4) 01/27/18 09:08 Absolute Eosinophils 0.2 10^3/uL (0.0-0.6) 01/30/18 04:05 Absolute Eos (Manual) 0.0 10^3/uL (0.0-0.6) 01/27/18 09:08 Absolute Basophils 0.0 10^3/uL (0.0-0.2) 01/30/18 04:05 Abs Basophils (Manual) 0.0 10^3/uL (0.0-0.2) 01/27/18 09:08 Platelet Comment ADEQUATE 01/27/18 09:08 Hypochromasia SLIGHT 01/27/18 09:08 Poikilocytosis SLIGHT 01/27/18 09:08 Anisocytosis SLIGHT 01/27/18 09:08 Microcytosis SLIGHT 01/27/18 09:08 Tear Drop Cells SLIGHT 01/27/18 09:08 Sodium 137.9 mmol/L (137-145) 01/30/18 04:05 Potassium 4.0 mmol/L (3.6-5.0) 01/30/18 04:05 Chloride 98 mmol/L (98-107) 01/30/18 04:05 Carbon Dioxide 30 mmol/L (22-30) 01/30/18 04:05 Anion Gap 10 (5-19) 01/30/18 04:05 BUN 8 mg/dL (7-20) 01/30/18 04:05 Creatinine 0.52 mg/dL (0.52-1.25) 01/30/18 04:05 Est GFR ( Amer) > 60 (>60) 01/30/18 04:05 Est GFR (Non-Af Amer) > 60 (>60) 01/30/18 04:05 Glucose 224 mg/dL (75-110) H 01/30/18 04:05 POC Glucose 250 mg/dL (70-110) H 01/30/18 06:53 Lactic Acid 1.2 mmol/L (0.7-2.1) 01/27/18 09:08 Calcium 8.7 mg/dL (8.4-10.2) 01/30/18 04:05 Total Bilirubin 0.8 mg/dL (0.2-1.3) 01/27/18 09:08 Direct Bilirubin 0.3 mg/dL (0.0-0.4) 01/27/18 09:08 Neonat Total Bilirubin Not Reportable 01/27/18 09:08 Neonat Direct Bilirubin Not Reportable 01/27/18 09:08 Neonat Indirect Bili Not Reportable 01/27/18 09:08 AST 19 U/L (14-36) 01/27/18 09:08 ALT 32 U/L (9-52) 01/27/18 09:08 Alkaline Phosphatase 113 U/L (38-126) 01/27/18 09:08 Creatine Kinase 52 U/L (30-135) 01/27/18 09:08 CK-MB (CK-2) 1.03 ng/mL (<4.55) 01/27/18 09:08 Troponin I < 0.012 ng/mL 01/27/18 09:08 Total Protein 6.9 g/dL (6.3-8.2) 01/27/18 09:08 Albumin 3.9 g/dL (3.5-5.0) 01/27/18 09:08 Urine Color YELLOW 01/27/18 10:05 Urine Appearance SLIGHTLY-CLOUDY 01/27/18 10:05 Urine pH 5.0 (5.0-9.0) 01/27/18 10:05 Ur Specific Jber 1.024 01/27/18 10:05 Urine Protein 100 mg/dL (NEGATIVE) H 01/27/18 10:05 Urine Glucose (UA) 50 mg/dL (NEGATIVE) H 01/27/18 10:05 Urine Ketones 20 mg/dL (NEGATIVE) H 01/27/18 10:05 Urine Blood NEGATIVE (NEGATIVE) 01/27/18 10:05 Urine Nitrite NEGATIVE (NEGATIVE) 01/27/18 10:05 Urine Bilirubin NEGATIVE (NEGATIVE) 01/27/18 10:05 Urine Urobilinogen NEGATIVE mg/dL (<2.0) 01/27/18 10:05 Ur Leukocyte Esterase MODERATE (NEGATIVE) H 01/27/18 10:05 Urine WBC (Auto) 9 /HPF 01/27/18 10:05 Urine RBC (Auto) 5 /HPF 01/27/18 10:05 U Hyaline Cast (Auto) 9 /LPF 01/27/18 10:05 Urine Bacteria (Auto) 1+ /HPF 01/27/18 10:05 Squamous Epi Cells Auto 5 /HPF 01/27/18 10:05 Amorphous Sediment Auto TRACE /HPF 01/27/18 10:05 Urine Mucus (Auto) MOD /LPF 01/27/18 10:05 Urine Ascorbic Acid NEGATIVE (NEGATIVE) 01/27/18 10:05 Stool for White Cells MANY H 01/27/18 18:50 C. difficile Tox (PCR) NEGATIVE (NEGATIVE) 01/27/18 15:40 01/27/18 15:40 - Final Stool - Stool Stool Culture - Preliminary Campylobacter Jejuni 01/27/18 15:40 - Final Stool - Stool Stool Culture - Final Campylobacter Jejuni 01/27/18 10:00 Blood Culture - Preliminary Blood NO GROWTH AFTER 72 HOURS 01/27/18 09:08 Blood Culture - Preliminary Blood NO GROWTH AFTER 72 HOURS Impressions: Chest X-Ray 01/27/18 08:36 IMPRESSION: NO ACUTE RADIOGRAPHIC FINDING IN THE CHEST. Qualifiers - * PATIENT BEING DISCHARGED WITH ANY OF THE FOLLOWING DIAGNOSIS: No Plan Discharge Plan: The patient is to follow with her primary care provider within 1-2 weeks for hospital follow-up. Patient has a colonoscopy pending for the end of the month. Time Spent: Less than 30 Minutes
== END 2018-01-30 10:54 | disposition home or self-care (01) | DRG 872 ==
LOC: ER 08:00 → EH 17:41 → 5 21:34
PROVIDERS: ADMIT Internal Medicine; ATTEND Internal Medicine
PROC: 3E0F73Z Introduction of Anti-inflammatory into Respiratory Tract, Via Natural or Artificial Opening (ICD-10-PCS; principal; 2018-01-28)
DX: A41.9 Sepsis, unspecified organism (principal); A04.5 Campylobacter enteritis; N30.00 Acute cystitis without hematuria; E11.9 Type 2 diabetes mellitus without complications; I25.10 Atherosclerotic heart disease of native coronary artery without angina pectoris; E78.00 Pure hypercholesterolemia, unspecified; I10 Essential (primary) hypertension; M19.90 Unspecified osteoarthritis, unspecified site; Z79.82 Long term (current) use of aspirin; Z79.4 Long term (current) use of insulin; Z79.899 Other long term (current) drug therapy; Z95.5 Presence of coronary angioplasty implant and graft; Z90.710 Acquired absence of both cervix and uterus; Z88.3 Allergy status to other anti-infective agents
CPT/HCPCS: 36415; 71045; 80048; 80053; 81001; 82550; 82553; 82962; 83605; 84484; 85025; 87040; 87045; 87077; 87205; 87493; 89055; 93005; 93010; 96374; 96375; 99285; J1170; J1335; J1815; J2405; J2550; J3490; J7120; S0028